=== PATIENT | female | born 1990 | race Caucasian/White ===

== ENCOUNTER → 2018-07-02 | Outpatient (CLI) | payer MEDICAID, OTHER ==
--- NOTE | 2018-07-02 08:48 | US ---
EXAMINATION TYPE: US abdomen complete DATE OF EXAM: 07/02/2018 COMPARISON: CLINICAL HISTORY: R10.12 LUQ Pain. LUQ pain, NPO, no previous surgeries EXAM MEASUREMENTS: Liver Length: 13.1 cm Gallbladder Wall: 0.2 cm CBD: 0.3 cm Spleen: 12.0 cm Right Kidney: 10.5 x 5.0 x 5.2 cm Left Kidney: 10.4 x 4.0 x 4.9 cm Pancreas: Mid and tail obscured by overlying bowel gas Liver: wnl, scanned through ribs due to overlying bowel gas Gallbladder: wnl, fold seen Evidence for sonographic Ron's sign: neg CBD: wnl Spleen: wnl Right Kidney: wnl Left Kidney: Mid pole echogenic focus with twinkling artifact = 0.5 x 0.5 cm Upper IVC: wnl Abd Aorta: Proximal not visualized due to overlying bowel gas The liver is homogenous. The intrahepatic portion of the IVC and proximal abdominal aorta are within normal limits. There is no evidence of cholelithiasis. Common bile duct is unremarkable. The visu alized portions of the pancreas are homogenous. The spleen is unremarkable. Kidneys are symmetric a nd free of hydronephrosis. No renal lesions are seen. IMPRESSION: 1. Nonobstructing nephrolithiasis left kidney.
== END | disposition home or self-care (01) ==
LOC: RADUSWWP 07:32
PROVIDERS: ATTEND Family Medicine
DX: N20.0 Calculus of kidney (principal)
CPT/HCPCS: 76700

== ENCOUNTER → 2018-08-13 | Outpatient (CLI) | payer MEDICAID ==
[2018-08-13 16:38] LABS: African American GFR (CKD) 88.2 (60.0-200.0); Albumin 4.5 g/dL (3.80-4.90); Albumin/Globulin Ratio 1.61 (1.60-3.17); Anion Gap 8.3 mmol/L (4.00-12.00); C Reactive Protein 0.8 mg/dL (0.0-0.8); Calcium 9.8 mg/dL (8.7-10.3); Carbon Dioxide 23.7 mmol/L (21.6-31.8); Globulin 2.8 g/dL (1.6-3.3); Potassium 3.8 mmol/L (3.5-5.5); Total Bilirubin 0.8 mg/dL (0.3-1.2); Total Protein 7.3 g/dL (6.2-8.2)
[2018-08-13 19:01] LABS: Gliadin AB IgA, Unit <0.2 U/mL
== END | disposition home or self-care (01) ==
LOC: LABWHC1 08:05
PROVIDERS: ATTEND Internal Medicine Gastroenterology
DX: K52.9 Noninfective gastroenteritis and colitis, unspecified (principal)
CPT/HCPCS: 36415; 80053; 83516; 85652; 86140

== ENCOUNTER 2018-09-26 08:16 | Day surgery (SDC) | payer MEDICAID ==
[2018-09-24 09:23] VITALS: BMI 38.7
[~2018-09-26 08:16] MED LIST: LACTATED RINGERS 1,000 ML IV SCH; LIDOCAINE 1% 20 ML VIAL (10MG/ML) FOR IV START INTRADERMA PRN
[2018-09-26 08:57] VITALS: TEMP 97.3
[2018-09-26] MEDS ORDERED: PROPOFOL 10 MG/ML 20 ML VIAL IV ONE (09:07)
[2018-09-26] MEDS ORDERED: LIDOCAINE 1% INJ 10MG/ML (20 ML MDV) ONE (09:07)
[2018-09-26] MEDS ORDERED: MIDAZOLAM 2 MG/2 ML VIAL ONE (09:07)
--- NOTE | 2018-09-26 09:27 | P.PCN ---
Date of Procedure: 09/26/18 Procedure(s) Performed: tBrief history: Patient is a pleasant 28-year-old white female, scheduled for an elective upper endoscopy as well as colonoscopy as a part of evaluation of abdominal pain, last few months duration. Procedure performed: Esophagogastroduodenoscopy with biopsy Colonoscopy with biopsy Preoperative diagnosis: Epigastric pain Left-sided abdominal pain and chronic diarrhea [place] [facility] [place]: After informed consent was obtained from the patient was brought into the endoscopy unit and IV sedation was administered by anesthesia under continuous monitoring. Initially upper endoscopy was done. The Olympus GF 160 video endoscope was inserted inserted into the mouth and esophagus intubated without any difficulty and was gradually advanced into the stomach and duodenum and carefully examined. The bulb and second part of the duodenum appeared normal. Biopsies were done from the duodenum to rule out celiac disease. The scope was then withdrawn into the stomach adequately insufflated with air and upon careful examination the antrum had mild gastritis and biopsies were done from this area. The body, cardia and fundus appeared normal. The scope was then withdrawn into the esophagus. The GE junction was located at 40 cm to the incisors. It appeared regular with no erythema erosions or ulcerations. Rest of the esophagus appeared normal. Patient tolerated the procedure well. At this time the patient continued to remain sedation. Initial digital rectal examination was normal. Olympus CF 160 video colonoscope was then inserted into the rectum and gradually advanced to the cecum without any difficulty. Careful examination was performed as the scope was gradually being withdrawn. The prep was excellent. Terminal ileum was intubated and approximately 20 cm visualized appeared normal. Biopsies were done from the terminal ileum. The cecum, ascending colon, transverse colon, descending colon, sigmoid colon and rectum appeared normal. Biopsies were also done from the ascending and descending colon to rule out microscopic/collagenous colitis. Retroflexion was performed in the rectum and no lesions were noted. Patient tolerated the procedure well. Impression: 1. Upper endoscopy revealed mild antral gastritis but no evidence of esophagitis or peptic ulcer disease 2. Colonoscopy was within normal limits with no evidence of colitis or colorectal neoplasia Recommendations: Findings of this examination were discussed with the patient as well as her family. She was advised to follow with the biopsy results and she'll be seen in office in 2-3 weeks
[2018-09-26 09:49] VITALS: BP 113/80; PULSE 87; RESP 18
== END 2018-09-26 10:12 | disposition home or self-care (01) ==
LOC: ORWHC2ENDO 08:16
PROVIDERS: ATTEND Internal Medicine Gastroenterology
DX: K29.50 Unspecified chronic gastritis without bleeding (principal); R19.7 Diarrhea, unspecified; J45.909 Unspecified asthma, uncomplicated; Z79.899 Other long term (current) drug therapy
CPT/HCPCS: 81025; 88305; 45380; 43239; J2250; J2001; J2704

== ENCOUNTER 2018-09-26 20:17 | Emergency (ER) | payer MEDICAID ==
[2018-09-26] MEDS ORDERED: SODIUM CHLORIDE 0.9% 500 ML 500 ML IV STA (20:39)
[2018-09-26] MEDS ORDERED: ONDANSETRON 4 MG/2 ML VIAL IVP STA (20:39)
[2018-09-26] MEDS ORDERED: MORPHINE SULFATE 4 MG/ML SYRINGE IV STA (20:39)
--- NOTE | 2018-09-26 20:41 | ED ---
Abdominal Pain HPI - General Chief Complaint: Abdominal Pain Stated Complaint: Post colonoscopy/EGD pain Time Seen by Provider: 09/26/18 20:27 Source: patient Mode of arrival: ambulatory Limitations: no limitations - History of Present Illness Initial Comments: 28-year-old female patient presents to the emergency department today for evaluation of upper abdominal pain. Patient states that she underwent upper GI endoscopy and colonoscopy earlier today with Dr. Romo. Patient states that she was discharged, had food, went home and took a nap. States upon awakening she had development of severe sharp stabbing pain to the midepigastric region radiat ing through to her back. Patient states she was nauseated and did vomit with this. She denies any hematemesis. She denies any diarrhea, hematochezia, or melena. States she is urinating without difficulty. Patient denies any history of similar type pain. States she underwent testing today due to chronic diarrhea and intermittent abdominal cramping. Denies any history of other abdominal surgeries. Patient denies any recent rash, fever, chills, shortness breath, chest pain, numbness, tingling, dizziness, weakness, hematuria, dysuria, urinary urgency, urinary frequency, headache, visual changes, or any other complaints. - Related Data Home Medications Medication Instructions Recorded Confirmed Albuterol Inhaler [Ventolin Hfa 1 - 2 puff INHALATION RT-Q6H PRN 11/06/15 09/26/18 Inhaler] Mometasone/Formoterol [Dulera 100 2 puff INHALATION RT-DAILY 09/24/18 09/26/18 Mcg/5 Mcg Inhaler] Montelukast [Singulair] 10 mg PO DAILY 09/24/18 09/26/18 Pramipexole [Mirapex] 0.125 mg PO DAILY 09/24/18 09/26/18 Allergies Allergy/AdvReac Type Severity Reaction Status Date / Time No Known Allergies Allergy Verified 09/26/18 20:36 Review of Systems ROS Statement: Those systems with pertinent positive or pertinent negative responses have been documented in the HPI. ROS Other: All systems not noted in ROS Statement are negative. Past Medical History Past Medical History: Asthma Additional Past Medical History / Comment(s): RLS, kidney stones, abd pain, diarrhea past 6 months History of Any Multi-Drug Resistant Organisms: None Reported Past Surgical History: No Surgical Hx Reported Additional Past Anesthesia/Blood Transfusion Reaction / Comment(s): has never had anesthesia Past Psychological History: Anxiety Smoking Status: Never smoker - Past Family History Mother Family Medical History: No Reported History General Exam Limitations: no limitations General appearance: alert, in no apparent distress, other (This is a well- developed, well-nourished adult female patient in mild distress related to pain. Vital signs upon presentation are temperature 97.7F, pulse 109, respirations 16, blood pressure 137/96, pulse ox 100% on room air.) Eye exam: Present: normal appearance, PERRL, EOMI. Absent: scleral icterus, conjunctival injection, periorbital swelling ENT exam: Present: normal exam, normal oropharynx, mucous membranes moist Respiratory exam: Present: normal lung sounds bilaterally. Absent: respiratory distress, wheezes, rales, rhonchi, stridor Cardiovascular Exam: Present: regular rate, normal rhythm, normal heart sounds. Absent: systolic murmur, diastolic murmur, rubs, gallop, clicks GI/Abdominal exam: Present: soft, tenderness (Midepigastric tenderness), normal bowel sounds. Absent: distended, guarding, rebound, rigid Neurological exam: Present: alert, oriented X3, CN II-XII intact Psychiatric exam: Present: normal affect, normal mood Skin exam: Present: warm, dry, intact, normal color. Absent: rash Course Vital Signs 09/26/18 09/27/18 20:22 00:11 Temperature 97.7 F 97.6 F Pulse Rate 109 H 87 Respiratory 16 20 Rate Blood Pressure 137/96 117/73 O2 Sat by Pulse 100 97 Oximetry Medical Decision Making - Medical Decision Making 28-year-old female patient percents to the emergency department today for evaluation of midepigastric abdominal pain. Patient underwent EGD and colonoscopy testing this morning. Physical examination does reveal some mild midepigastric tenderness but no guarding. Labs reviewed and are unremarkable. KUB was unremarkable. Patient remained in significant pain even after IV pain medication dosing so did perform CT of the abdomen and pelvis. There is no acute findings. Patient did receive second dose of medication. Upon reevaluation she is resting complete. She is reporting mild pain to the midepigastric region. The case was discussed with the bulk sealer operator Dr. Romo who recommends monitoring patient for return of symptoms. Does agree with discharge and follow-up in the office outpatient. Patient remained comfortable and was discharged home. We did discuss return parameters in detai. - Lab Data Result diagrams: 09/26/18 21:05 09/26/18 21:05 Lab Results 09/26/18 09/26/18 09/26/18 Range/Units 21:05 21:05 21:05 WBC 10.8 H (3.8-10.6) k/uL RBC 4.88 (3.80-5.40) m/uL Hgb 13.7 (11.4-16.0) gm/dL Hct 43.0 (34.0-46.0) % MCV 88.1 (80.0-100.0) fL MCH 28.1 (25.0-35.0) pg MCHC 31.9 (31.0-37.0) g/dL RDW 12.8 (11.5-15.5) % Plt Count 308 (150-450) k/uL Neutrophils % 69 % Lymphocytes % 21 % Monocytes % 4 % Eosinophils % 4 % Basophils % 0 % Neutrophils # 7.5 (1.3-7.7) k/uL Lymphocytes # 2.3 (1.0-4.8) k/uL Monocytes # 0.5 (0-1.0) k/uL Eosinophils # 0.4 (0-0.7) k/uL Basophils # 0.1 (0-0.2) k/uL PT 9.7 (9.0-12.0) sec INR 0.9 (<1.2) APTT 25.3 (22.0-30.0) sec Sodium 139 (137-145) mmol/L Potassium 4.0 (3.5-5.1) mmol/L Chloride 105 (98-107) mmol/L Carbon Dioxide 24 (22-30) mmol/L Anion Gap 10 mmol/L BUN 12 (7-17) mg/dL Creatinine 0.79 (0.52-1.04) mg/dL Est GFR (CKD-EPI)AfAm >90 (>60 ml/min/1.73 sqM) Est GFR (CKD-EPI)NonAf >90 (>60 ml/min/1.73 sqM) Glucose 103 H (74-99) mg/dL Calcium 9.8 (8.4-10.2) mg/dL Total Bilirubin 1.0 (0.2-1.3) mg/dL AST 26 (14-36) U/L ALT 35 (9-52) U/L Alkaline Phosphatase 105 (38-126) U/L Total Protein 7.4 (6.3-8.2) g/dL Albumin 4.1 (3.5-5.0) g/dL Amylase 57 (30-110) U/L Lipase 87 (23-300) U/L Urine Color Urine Appearance (Clear) Urine pH (5.0-8.0) Ur Specific [place] (1.001-1.035) Urine Protein (Negative) Urine Glucose (UA) (Negative) Urine Ketones (Negative) Urine Blood (Negative) Urine Nitrite (Negative) Urine Bilirubin (Negative) Urine Urobilinogen (<2.0) mg/dL Ur Leukocyte Esterase (Negative) Urine RBC (0-5) /hpf Urine WBC (0-5) /hpf Ur Squamous Epith Cells (0-4) /hpf Urine Mucus (None) /hpf Urine HCG, Qual (Not Detectd) 09/26/18 09/26/18 Range/Units 22:35 22:35 WBC (3.8-10.6) k/uL RBC (3.80-5.40) m/uL Hgb (11.4-16.0) gm/dL Hct (34.0-46.0) % MCV (80.0-100.0) fL MCH (25.0-35.0) pg MCHC (31.0-37.0) g/dL RDW (11.5-15.5) % Plt Count (150-450) k/uL Neutrophils % % Lymphocytes % % Monocytes % % Eosinophils % % Basophils % % Neutrophils # (1.3-7.7) k/uL Lymphocytes # (1.0-4.8) k/uL Monocytes # (0-1.0) k/uL Eosinophils # (0-0.7) k/uL Basophils # (0-0.2) k/uL PT (9.0-12.0) sec INR (<1.2) APTT (22.0-30.0) sec Sodium (137-145) mmol/L Potassium (3.5-5.1) mmol/L Chloride (98-107) mmol/L Carbon Dioxide (22-30) mmol/L Anion Gap mmol/L BUN (7-17) mg/dL Creatinine (0.52-1.04) mg/dL Est GFR (CKD-EPI)AfAm (>60 ml/min/1.73 sqM) Est GFR (CKD-EPI)NonAf (>60 ml/min/1.73 sqM) Glucose (74-99) mg/dL Calcium (8.4-10.2) mg/dL Total Bilirubin (0.2-1.3) mg/dL AST (14-36) U/L ALT (9-52) U/L Alkaline Phosphatase (38-126) U/L Total Protein (6.3-8.2) g/dL Albumin (3.5-5.0) g/dL Amylase (30-110) U/L Lipase (23-300) U/L Urine Color Light Yellow Urine Appearance Clear (Clear) Urine pH 5.5 (5.0-8.0) Ur Specific [place] >1.050 H (1.001-1.035) Urine Protein Negative (Negative) Urine Glucose (UA) Negative (Negative) Urine Ketones Negative (Negative) Urine Blood Small H (Negative) Urine Nitrite Negative (Negative) Urine Bilirubin Negative (Negative) Urine Urobilinogen <2.0 (<2.0) mg/dL Ur Leukocyte Esterase Negative (Negative) Urine RBC 29 H (0-5) /hpf Urine WBC 4 (0-5) /hpf Ur Squamous Epith Cells 5 H (0-4) /hpf Urine Mucus Rare H (None) /hpf Urine HCG, Qual Not Detected (Not Detectd) - Radiology Data Radiology results: report reviewed, image reviewed KUB x-ray of the abdomen was obtained. Report reviewed in its entirety. Impression by Dr. Earnest Coombs shows negative examination. CT abdomen and pelvis was obtained. Report was reviewed in its entirety. Impression by Dr. Manzanares shows no acute findings. There is tiny left posterolateral hernia containing a portion of the fundus of the stomach. Disposition Clinical Impression: Abdominal pain Disposition: HOME SELF-CARE Condition: Good Instructions (If sedation given, give patient instructions): Abdominal Pain (ED) Additional Instructions: Start clear liquid diet and advance as tolerated. Follow-up with your gastric antrum urologist as directed. Return to the emergency department immediately for any new, worsening, or concerning symptoms. Is patient prescribed a controlled substance at d/c from ED?: No Referrals: Demi Krishna MD [Primary Care Provider] - 1-2 days Time of Disposition: 23:59
[2018-09-26 21:28] LABS: Basophils # (A) 0.1 k/uL (0-0.2); Basophils % (A) 0 %; Eosinophils # (A) 0.4 k/uL (0-0.7); Eosinophils % (A) 4 %; HGB 13.7 gm/dL (11.4-16.0); Lymphocytes # (A) 2.3 k/uL (1.0-4.8); Lymphocytes % (A) 21 %; MCH 28.1 pg (25.0-35.0); MCHC 31.9 g/dL (31.0-37.0); MCV 88.1 fL (80.0-100.0); Monocytes # (A) 0.5 k/uL (0-1.0); Monocytes % (A) 4 %; Neutrophils # (A) 7.5 k/uL (1.3-7.7); Neutrophils % (A) 69 %; Platelet Count 308 k/uL (150-450); RBC 4.88 m/uL (3.80-5.40); RDW 12.8 % (11.5-15.5); WBC 10.8 k/uL (3.8-10.6)
[2018-09-26 21:37] LABS: INR 0.9 (<1.2); Partial Thromboplastin Time 25.3 sec (22.0-30.0); Prothrombin Time 9.7 sec (9.0-12.0)
[2018-09-26 21:39] LABS: ALT 35 U/L (9-52); AST 26 U/L (14-36); African American GFR (CKD) >90 (>60 ml/min/1.73 sqM); Albumin 4.1 g/dL (3.5-5.0); Alkaline Phosphatase 105 U/L (38-126); Amylase 57 U/L (30-110); Anion Gap 10 mmol/L; Blood Urea Nitrogen 12 mg/dL (7-17); Calcium 9.8 mg/dL (8.4-10.2); Carbon Dioxide 24 mmol/L (22-30); Chloride 105 mmol/L (98-107); Glucose 103 mg/dL (74-99); Non-African American GFR(CKD) >90 (>60 ml/min/1.73 sqM); Sodium 139 mmol/L (137-145); Total Protein 7.4 g/dL (6.3-8.2)
[2018-09-26] MEDS ORDERED: FAMOTIDINE 20 MG/2 ML VIAL IV STA (21:46)
[2018-09-26] MEDS ORDERED: HYDROmorphone 0.5 MG/0.5 ML SYRINGE IVP STA (21:46)
--- NOTE | 2018-09-26 22:25 | CT ---
EXAM: CT Abdomen and Pelvis With Intravenous Contrast CLINICAL HISTORY: Pain TECHNIQUE: Axial computed tomography images of the abdomen and pelvis with intravenous contrast. CTDI is 0.085, 0.085, 12.5 11.3 mGy and DLP is 1103.2 mGy-cm. This CT exam was performed using one or more of the following dose reduction techniques: automated exposure control, adjustment of the mA and/or kV according to patient size, and/or use of iterative reconstruction technique. COMPARISON: No relevant prior studies available. FINDINGS: Lung bases: Unremarkable. No mass. No consolidation. ABDOMEN: Liver: Unremarkable. Gallbladder and bile ducts: Unremarkable. Pancreas: Unremarkable. Spleen: Unremarkable. Adrenals: Unremarkable. Kidneys and ureters: Unremarkable. Stomach and bowel: Unremarkable. PELVIS: Appendix: Appendix is unremarkable. Bladder: Unremarkable. Reproductive: Unremarkable as visualized. ABDOMEN and PELVIS: Intraperitoneal space: Unremarkable. Bones/joints: No acute fracture. No dislocation. Soft tissues: Tiny left Bochdalek hernia containing a portion of the fundus of the stomach. Vasculature: Unremarkable. No abdominal aortic aneurysm. Lymph nodes: Unremarkable. IMPRESSION: No acute findings.
--- NOTE | 2018-09-26 22:31 | XR ---
EXAMINATION TYPE: XR KUB on the 2 views DATE OF EXAM: 09/26/2018 COMPARISON: NONE HISTORY: Upper quadrant pain TECHNIQUE: 2 upright views FINDINGS: Visualized lung bases and pleural spaces are negative. No pneumoperitoneum or pneumatosis. The bowel gas pattern is normal. No definite acute skeletal or soft tissue findings. IMPRESSION: Negative examination.
[2018-09-26 22:45] LABS: Appearance,Urine Clear (Clear); Bilirubin,Urine Negative (Negative); Blood,Urine Small (Negative); Color,Urine Light Yellow; Glucose,Urine (UA) Negative (Negative); Ketones,Urine Negative (Negative); Leukocyte Esterase,Urine Negative (Negative); Mucus,Urine Rare /hpf; Nitrite,Urine Negative (Negative); PH, Urine 5.5 (5.0-8.0); Protein,Urine Negative (Negative); RBC,Urine 29 /hpf (0-5); Squamous Epithelial Cell,Urine 5 /hpf (0-4); Urobilinogen,Urine <2.0 mg/dL (<2.0); WBC,Urine 4 /hpf (0-5)
[2018-09-26 22:46] LABS: Specific Gravity,Urine >1.050 (1.001-1.035)
[2018-09-27 00:12] VITALS: BP 117/73; PULSE 87; RESP 20; TEMP 97.6
== END 2018-09-27 00:15 | disposition home or self-care (01) ==
LOC: EC 20:17
DX: R10.10 Upper abdominal pain, unspecified (principal); R10.13 Epigastric pain; R11.2 Nausea with vomiting, unspecified; J45.909 Unspecified asthma, uncomplicated; G25.81 Restless legs syndrome; Z87.442 Personal history of urinary calculi; Z79.51 Long term (current) use of inhaled steroids; Z79.899 Other long term (current) drug therapy
CPT/HCPCS: 36415; 80053; 82150; 83690; 85025; 85610; 85730; 81001; 81025; 74018; 74177; 99284; 96374; 96375 ×3; 96361 ×3; J2270; J2405; J1170; Q9967

== ENCOUNTER → 2020-05-01 | Outpatient (CLI) | payer MEDICAID ==
[2020-05-01 11:04] LABS: ALT 18 U/L (4-34); AST 20 U/L (14-36); African American GFR (CKD) >90 (>60 ml/min/1.73 sqM); Albumin 4.1 g/dL (3.5-5.0); Albumin/Globulin Ratio 1.2; Alkaline Phosphatase 94 U/L (38-126); Anion Gap 7 mmol/L; Blood Urea Nitrogen 13 mg/dL (7-17); Calcium 9.3 mg/dL (8.4-10.2); Carbon Dioxide 26 mmol/L (22-30); Chloride 105 mmol/L (98-107); Cholesterol 159 mg/dL (<200); Globulin 3.3 g/dL; Glucose 103 mg/dL (74-99); HDL Cholesterol 57 mg/dL (40-60); LDL Cholesterol,Calculated 85 mg/dL (0-99); Non-African American GFR(CKD) >90 (>60 ml/min/1.73 sqM); Potassium 4.3 mmol/L (3.5-5.1); Sodium 138 mmol/L (137-145); Total Bilirubin 0.8 mg/dL (0.2-1.3); Total Protein 7.4 g/dL (6.3-8.2); Triglycerides 86 mg/dL (<150)
[2020-05-01 15:50] LABS: HCT 42.1 % (37.2-46.3); HGB 13.5 g/dL (12.0-15.0); MCH 28.8 pg (27.0-32.0); MCHC 32.1 g/dL (32.0-37.0); MCV 89.8 fL (80.0-97.0); Mean Platelet Volume 10.1 fL (9.5-12.2); Platelet Count 339 X 10*3/uL (140-440); RBC 4.69 X 10*6/uL (4.10-5.20); RDW 12.4 % (11.5-14.5); WBC 7.52 X 10*3/uL (4.50-10.00)
== END | disposition home or self-care (01) ==
LOC: LABWHC1 09:16
PROVIDERS: ATTEND Family Medicine
DX: I26.99 Other pulmonary embolism without acute cor pulmonale (principal)
CPT/HCPCS: 36415; 80053; 80061; 82306; 84443; 85027

== ENCOUNTER → 2020-09-21 | Outpatient (CLI) | payer MEDICAID ==
--- NOTE | 2020-09-21 08:27 | CT ---
EXAMINATION TYPE: CT knee LT wo con DATE OF EXAM: 09/21/2020 COMPARISON: None HISTORY: Effusion, left knee pain CT DLP: 467.5 mGycm Automated exposure control for dose reduction was used. Unenhanced CT of the left knee was performed with bone and soft tissue window settings submitted. 3-D reconstruction was obtained at a separate workstation. FINDINGS: There is a vague nondisplaced fracture involving the tibial plateau anteriorly. Fracture extends medi ally to the midportion of the tibial plateau seen best on coronal images of 57 and sagittal data s et .There is a mild surrounding soft tissue edema noted. No additional fractures are seen at this time. Small suprapatellar joint effusion noted measuring approximately 3.7 x 3.2 x 1.2 cm. Joint spaces are well-preserved. There is mild stranding of the lateral collateral ligament which may reflect strain. Medial collateral ligament appears to be grossly intact. ACL, PCL and menisci not ap propriately evaluated on CT. Quadriceps and patellar tendons are grossly intact. IMPRESSION: 1.There is a vague nondisplaced fracture involving the tibial plateau anteriorly. Fracture extends me dially to the midportion of the tibial plateau. 2. Small suprapatellar joint effusion. 3. Findings suggest lateral collateral ligament strain. Correlate clinically. Consider MRI if felt to be clinically indicated.
== END | disposition home or self-care (01) ==
LOC: RADCTMAIN 07:37
PROVIDERS: ATTEND Orthopaedic Surgery Sports Medicine
DX: S82.145A Nondisplaced bicondylar fracture of left tibia, initial encounter for closed fracture (principal); X58.XXXA Exposure to other specified factors, initial encounter

== ENCOUNTER → 2021-06-10 | Outpatient (CLI) | payer MEDICAID ==
[2021-06-10 17:37] LABS: Basophils # (A) 0.06 X 10*3/uL (0.00-0.10); Basophils % (A) 0.8 %; Eosinophils % (A) 8.2 %; HCT 40.3 % (37.2-46.3); Immature Grans, Automated 0.3 %; Lymphocytes # (A) 2.11 X 10*3/uL (0.90-5.00); Lymphocytes % (A) 28.7 %; MCH 28.6 pg (27.0-32.0); MCHC 32.3 g/dL (32.0-37.0); MCV 88.6 fL (80.0-97.0); Mean Platelet Volume 10.5 fL (9.5-12.2); Monocytes # (A) 0.45 X 10*3/uL (0.20-1.00); Monocytes % (A) 6.1 %; NRBC Per 100 WBC 0 /100 WBCS (0.0-0.0); Neutrophils # (A) 4.12 X 10*3/uL (1.80-7.70); Neutrophils % (A) 55.9 %; Platelet Count 361 X 10*3/uL (140-440); RBC 4.55 X 10*6/uL (4.10-5.20); RDW 13.1 % (11.5-14.5); WBC 7.36 X 10*3/uL (4.50-10.00)
[2021-06-10 18:29] LABS: Chol/HDL Ratio 2.57 Ratio; LDL Cholesterol,Calculated 89.7 mg/dL (0.0-131.0); VLDL Calculation 13.46 mg/dL (5.00-40.00)
[2021-06-10 18:30] LABS: ALT 17 U/L (8-44); AST 15 U/L (13-35); African American GFR (CKD) 113.8 (60.0-200.0); Albumin 4.2 g/dL (3.8-4.9); Alkaline Phosphatase 105 U/L (41-126); BUN/Creat Ratio 14.57 Ratio (12.00-20.00); Blood Urea Nitrogen 11.6 mg/dL (9.0-27.0); Calcium 9.4 mg/dL (8.7-10.3); Carbon Dioxide 21.3 mmol/L (20.0-27.5); Chloride 106 mmol/L (96-109); Globulin 2.8 g/dL (1.6-3.3); Glucose 95 mg/dL (70-110); Non-African American GFR(CKD) 98.1 (60.0-200.0); Potassium 4.1 mmol/L (3.5-5.5); Sodium 139 mmol/L (135-145)
== END | disposition home or self-care (01) ==
LOC: LABWHC1 14:16
PROVIDERS: ATTEND Family Medicine
DX: Z00.00 Encounter for general adult medical examination without abnormal findings (principal); E55.9 Vitamin D deficiency, unspecified
CPT/HCPCS: 36415; 80053; 80061; 82306; 83036; 84443; 85025

== ENCOUNTER → 2021-08-11 | Outpatient (CLI) | payer MEDICAID ==
--- NOTE | 2021-08-13 07:24 | FL ---
EXAMINATION TYPE: FL hysterosalpingography DATE OF EXAM: 08/11/2021 CLINICAL HISTORY: Infertility. TECHNIQUE: Fluoroscopy. COMPARISON: CT abdomen and pelvis September 26, 2018. FINDINGS: Fluoroscopic guidance was provided during hysterosalpingogram procedure performed by micaela heaton A total of 1 minute 28 seconds of fluoroscopic time was utilized during the procedure and 10 spot images was acquired. A total of 8 cc of Isovue-370 was used. Procedure was explained to patient. Benefits, alternatives, and risks were discussed. Informed consen t was then obtained. Preprocedure potato picker image shows no suspicious abnormality. Speculum was inserted using sterile techniq ue. Cervical os was identified but appeared narrowed. Catheter was successfully inserted into cervica l os. Patient had pain throughout entire procedure. Balloon was inflated. Despite balloon inflation t here is significantly identified. There is early visualization of right fallopian tube appears within normal limits and free spillage into the right peritoneal cavity. Multiple attempts to insert more c ontrast unsuccessful and filling the left fallopian tube. Endometrial contour appears within normal l imits. After several attempts with patient in pain, procedure was terminated. Balloon was deflated an d catheter was removed. Speculum was removed. Patient tolerated procedure without any immediate complication. Patient was kept in the department fo r shortly after the procedure and then discharged home in stable condition. IMPRESSION: Patent right fallopian tube. Nonvisualized left fallopian tube.
== END | disposition home or self-care (01) ==
LOC: RADUSWWP 13:25
PROVIDERS: ATTEND Obstetrics & Gynecology
DX: N97.9 Female infertility, unspecified (principal)
CPT/HCPCS: 58340; 74740; Q9967

== ENCOUNTER → 2022-10-10 | Outpatient (CLI) | payer MEDICAID ==
--- NOTE | 2022-10-11 18:48 | MR ---
EXAMINATION TYPE: MR lumbar spine wo con DATE OF EXAM: 10/10/2022 6:03 PM COMPARISON: Radiograph 10/10/2022, 07/07/2022 radiograph. CLINICAL INDICATION: Female, 32 years old with history of M47.26; PHH, Low back pain into right side TECHNIQUE: Multi planar, multi sequence imaging was performed utilizing: T1-weighted, T2-weighted, a nd turbo inversion recovery imaging of the lumbar spine. IV Contrast: None. FINDINGS: Alignment: The lumbar vertebral bodies have preserved heights and alignment. Cord: The conus medullaris and the distal spinal cord appear unremarkable with regards to their signa l intensity and morphology. Bones/Discs: Bone marrow signal is grossly maintained. T11 high T1 high T2 signal lesion likely repre senting vertebral body hemangioma. No abnormal bony edema on inversion recovery sequences. L4-L5 and L5-S1 disc desiccation is present. Scattered facet joint arthropathy is present. T12-L1: No evidence of significant spinal canal stenosis or neural foraminal stenosis. L1-L2: No evidence of significant spinal canal stenosis or neural foraminal stenosis. L2-L3: No evidence of significant spinal canal stenosis or neural foraminal stenosis. L3-L4: No evidence of significant spinal canal stenosis or neural foraminal stenosis. L4-L5: Disc bulge and facet joint arthropathy result in mild spinal canal and mild bilateral neural f oraminal stenosis. L5-S1: Central and left central disc protrusion without significant spinal canal or neural foraminal stenosis. No significant spinal canal or neural foraminal stenosis in the remainder of the visualized levels. Other findings: None. IMPRESSION: 1. No definitive evidence of significant spinal canal or neural foraminal stenosis. 2. L5-S1 central disc protrusion without evidence for significant spinal canal stenosis.
== END | disposition home or self-care (01) ==
LOC: RADMRIMAIN 17:24
PROVIDERS: ATTEND Orthopaedic Surgery
DX: M47.26 Other spondylosis with radiculopathy, lumbar region (principal); M51.16 Intervertebral disc disorders with radiculopathy, lumbar region
CPT/HCPCS: 72148

== ENCOUNTER → 2022-12-22 | Outpatient (CLI) | payer MEDICAID ==
[2022-12-22 13:14] VITALS: BP 140/91; PULSE 105; RESP 16; TEMP 98
--- NOTE | 2022-12-22 13:51 | P.PAINPG ---
Objective - Vital Signs Vital signs: Intake & Output 12/21/22 12/22/22 12/22/22 18:59 06:59 18:59 Weight 104.326 kg PQRS Measure Charge Sheet Comment: HISTORY OF PRESENT ILLNESS: A 32 yr old female as a referral from [facility] presents today w severe and chronic LBP secondary to DDD, spondylosis and facet arthropathy without myelopathy for evaluation. Pt states pain level is provoked at 8 /10 in intensity, constant, localized in the lower lumbar spine, sharp in character w shooting pain towards the R thigh and knee. Pain is provoked by over activity or walking/ standing for periods of 30 min or more. Pain is alleviated by PT x 6 wks in 2021, massage therapy semi monthly x 2 sessions this month which she is currently in, chiropractic treatments in 2021, heat, ice, medications (Lyrica, Flexeril, Ibu), topical, repositioning and rest. Oswestry axial pain score at 16. PMH: OA, Asthma, RLS, Nephrolithiasis, Anxiety PSH: DENIES SH: Negative x3 FH: Mo- No Medical History All: See list Meds: See list REVIEW OF ORGAN SYSTEMS: CONSTITUTIONAL: No fevers or chills. No recent weight loss. NEUROLOGICAL: + numbness and tingling along the distal extremities. No seizure disorders or headaches. MUSCULOSKELETAL: + pain PSYCHIATRIC: Denies current depression or suicidal thoughts. Physical Examinations : Constitutional : Cooperative , not in acute distress . Neurologic : Cranial nerve II to XII intact. No focal neurological deficits. Psychiatric : alert & oriented x 3. Matching mood & appropriate affect. Judgment & insight intact. Musculoskeletal : Cervical Spine Motor strength in the deltoid and biceps: Normal right side. Normal Left side Motor strength biceps and the wrist extensors: Normal right side . Normal left side Motor strength in the triceps muscle: Normal right side. Normal left side Deep tendon reflexes: Normal at the biceps. Normal at Brachioradialis. Normal at triceps Vertebral body tenderness to deep palpation over Cervical facet loading test: positive bilaterally Spurling test: positive bilaterally Neck distraction test: positive bilaterally Mariam sign: positive bilaterally Lumbar spine Motor strength lower extremities ,thigh and legs 5/5 Right side , 5/5 Left side Deep tendon reflexes : Normal Knee Jerk. Normal Ankle Jerk Vertebral body tenderness over L5 Duong Test positive Lumbar facet Loading Test: positive Right / positive Left Range of motion of the lumbar spine Flexion 30 degrees, extension 10 degrees Straight Leg Raise test: Left/ Right positive at <35 degrees Alma test: positive right / positive left. Severe tenderness over the Sacroiliac joint on the Right / Left sides Gaenslen test: positive bilaterally Seated flexion test: positive bilaterally. Sacral spine : Severe tenderness over the Sacroiliac joint: right side / left side Range of motion: Flexion of the lumbar spine <60 degrees Range of motion: Extension of the lumbar spine <20 degrees Gaenslen's Test positive Andre's Test positive Alma test: positive right side / left side Thigh Thrust Test Sacral Thrust Test Imaging: MRI noncontrast of the lumbar spine from 10/10/22 reviewed Assessment/ Plan : Lumbar DDD Recommendation of KURT L5-S1 #1. May need a series of injections for optimal pain relief. Risks, benefits of procedure discussed and patient verbalized understanding. Admits to anti- coagulant use or medical history of diabetes. Protocol for discontinuation/ continuation of medications deon procedure discussed. Minimal anesthesia provided, if clinically indicated, consisting of Versed and Fentanyl. Valium 5mg #1 to take 1 hr prior to procedure. Use, side effects, adverse reactions and safe storage discussed. Pt acknowledged understanding. All questions answered. I have spent greater than 30 minutes on patient care today. Dr Martini was available by phone for the evaluation of this patient. The time was used to review the medical records including relevant urine studies and Prescription history (MAPs), review of the available imaging, evaluation and examination of the patient, coordination of care with the medical staff and if applicable referring physicians, as well as creation of the medical record PQRS Narrative: Smoking Status Never smoker Home Medications: Ambulatory Orders Albuterol Inhaler [Ventolin Hfa Inhaler] 1 - 2 puff INHALATION RT-Q6H PRN 11/06/15 Mometasone/Formoterol [Dulera 100 Mcg/5 Mcg Inhaler] 2 puff INHALATION RT-DAILY 09/24/18 Montelukast [Singulair] 10 mg PO DAILY 09/24/18 Pramipexole [Mirapex] 0.125 mg PO DAILY 09/24/18 diazePAM [Valium] 5 mg PO DAILY PRN 1 Days #2 tab 12/22/22 Controlled Substance Measures - Controlled Substance Measures Is patient prescribed a controlled substance at discharge?: Yes When asked, does pt state using other controlled substances?: No If prescribed controlled substance>3 days was MAPS reviewed?: Prescribed <3 Days
== END ==
LOC: PNWHC3 12:17
PROVIDERS: ATTEND Specialist
DX: M47.817 Spondylosis without myelopathy or radiculopathy, lumbosacral region (principal); M48.061 Spinal stenosis, lumbar region without neurogenic claudication; M51.36 Other intervertebral disc degeneration, lumbar region; M19.90 Unspecified osteoarthritis, unspecified site; J45.909 Unspecified asthma, uncomplicated; F41.9 Anxiety disorder, unspecified; Z79.51 Long term (current) use of inhaled steroids
CPT/HCPCS: 99211

== ENCOUNTER 2023-01-10 07:31 | Day surgery (SDC) | payer MEDICAID ==
[2023-01-05 14:27] VITALS: BMI 44.9
[~2023-01-10 07:31] MED LIST changes: -LIDOCAINE 1% 20 ML VIAL (10MG/ML) FOR IV START INTRADERMA PRN
[2023-01-10 08:27] VITALS: RESP 16; TEMP 97.3
[2023-01-10] MEDS ORDERED: methylPREDNISolone ACETATE 80 MG/ML 1 ML VIAL ONE (09:38)
[2023-01-10] MEDS ORDERED: IOPAMIDOL M200 10 ML VIAL ONE (09:38)
[2023-01-10] MEDS ORDERED: ROPIVACAINE 5MG/ML 20ML VIAL ONE (09:38)
--- NOTE | 2023-01-10 10:08 | FL ---
Intraoperative/procedural fluoroscopic services were provided for lumbar epidural steroid injection. Total fluoroscopy time is 42.3 seconds with a total of 2 submitted images to PACS. Total DAP 0.01161 mGym2. Please see the operative note for further details.
--- NOTE | 2023-01-10 10:12 | P.PCN ---
Date of Procedure: 01/10/23 Description of Procedure: PREOPERATIVE DIAGNOSIS: 1- Lumbar Degenerative Disc Diseases 2-Lumbar spondylosis with Facet arthropathy without myelopathy. 3-lumbar spinal stenosis POSTOPERATIVE DIAGNOSIS: 1-lumbar degenerative disc disease. 2-lumbar spondylosis with facet arthropathy without myelopathy. 3-lumbar spinal stenosis. PROCEDURE 1. Lumbar epidural steroid injection under fluoroscopic guidance at the L4-5 level. (Fluoroscopy imaging was available in radiology department) 2. Lumbar epidurogram. ANESTHESIA: Lidocaine 1% 3 and then only. EBL: Minimal PROCEDURE INDICATION: The patient with low back pain and radiculitis symptoms unresponsive to conservative treatment. Fluoroscopy was used to optimize visualization of the needle placement and to maximize safety. PROCEDURE DESCRIPTION / TECHNIQUE: The patient was seen and identified in the preoperative area. Risks, benefits, complications including but not limited to infections ,bleeding ,allergic reaction to the medications ,nerve damage and not complete pain releife , and alternatives were discussed with the patient. The patient agreed to proceed with the procedure and signed the consent, and vital signs were stable. Patient was taken to the OR and time out was completed. The patient was placed in the prone position on procedure table and a pillow was placed under the abdomen to reduce lumbar lordosis. The lumbosacral area was prepped and draped in the usual sterile fashion.ere closely monitored during the procedure. Vital signs was monitered during the entire procedure. Using anterior-posterior fluoroscopy, initially attempted L5-S1 levels but patient was very sensitive so changed to L4-5 interlaminar space was identified and the skin over this site was marked and then infiltrated with 1% lidocaine subcutaneously. Subsequently, a 20-gauge Tuohy epidural needle was inserted and advanced toward the epidural space using the ``Loss of resistance technique and guided by AP and lateral fluoroscopy. The correct needle position in the epidural space was verified with the injection of 2 mL of the water soluble contrast dye Isovue 200 contrast and observing an excellent epidurogram with the epidural spread of the dye, after negative aspiration for blood and CSF and in the absence of paresthesias. Again after negative aspiration, a 6 ml mixture containing 80 mg of Depo-medrol ( Preservetive Free ), and 5 ml of preservative free Normal Saline, was injected and a washout of epidurogram was seen. Needle was withdrawn intact, skin was cleansed, and bandages were applied. COMPLICATIONS: None DISPOSITION / PLANS: The patient was placed in a supine position and transferred to the recovery area in a stable condition for observation. There was no evidence of lower extremity motor or sensory deficit after the procedure. Patient was discharged from the recovery room after meeting discharge criteria. Home discharge instructions were given to the patient by the staff. The patient was reexamined prior to discharge. The patient will schedule a follow up in the clinic in 2-4 weeks.
[2023-01-10 10:35] VITALS: BP 117/87; PULSE 81
== END 2023-01-10 10:35 | disposition home or self-care (01) ==
LOC: ORPAIN 07:31
PROVIDERS: ATTEND Pain Medicine Interventional Pain Medicine
DX: M51.16 Intervertebral disc disorders with radiculopathy, lumbar region (principal); M47.26 Other spondylosis with radiculopathy, lumbar region; M48.061 Spinal stenosis, lumbar region without neurogenic claudication; Z79.899 Other long term (current) drug therapy
CPT/HCPCS: 81025; 62323; J1040; Q9966; J2795

== ENCOUNTER → 2023-02-09 | Outpatient (CLI) | payer MEDICAID ==
[2023-02-09 13:27] VITALS: BP 159/98; PULSE 95; RESP 16; TEMP 97.6
--- NOTE | 2023-02-09 15:10 | P.PAINPG ---
PQRS Measure Charge Sheet Comment: HISTORY OF PRESENT ILLNESS: A 32 yr old female presents today w severe and chronic LBP secondary to DDD, spondylosis and facet arthropathy without myelopathy for evaluation s/p KURT L4- L5 #1. Pt states she experienced 80 % pain relief x 4 wks s/p procedure. Pt states pain level is provoked at 8 /10 in intensity, constant, localized in the lower L lumbar spine, predominantly axial, sharp in character w occasional shooting pain towards the L thigh and knee. Pain is provoked by over activity or walking/ standing for periods of 30 min or more. Pain is alleviated by PT x 6 wks in 2021, massage therapy semi monthly x 2 sessions this month which she is currently in, chiropractic treatments in 2021, heat, ice, medications, topical, repositioning and rest. Oswestry axial pain score at 16. Interventional procedures included KURT L4-L5 x1 Medications include Lyrica, Flexeril, Ibu, Celebrex REVIEW OF ORGAN SYSTEMS: CONSTITUTIONAL: No fevers or chills. No recent weight loss. NEUROLOGICAL: + numbness and tingling along the distal extremities. No seizure disorders or headaches. MUSCULOSKELETAL: + pain PSYCHIATRIC: Denies current depression or suicidal thoughts. Physical Examinations : Constitutional : Cooperative , not in acute distress . Neurologic : Cranial nerve II to XII intact. No focal neurological deficits. Psychiatric : alert & oriented x 3. Matching mood & appropriate affect. Judgment & insight intact. Musculoskeletal : Cervical Spine Motor strength in the deltoid and biceps: Normal right side. Normal Left side Motor strength biceps and the wrist extensors: Normal right side . Normal left side Motor strength in the triceps muscle: Normal right side. Normal left side Deep tendon reflexes: Normal at the biceps. Normal at Brachioradialis. Normal at triceps Vertebral body tenderness to deep palpation over Cervical facet loading test: positive bilaterally Spurling test: positive bilaterally Neck distraction test: positive bilaterally Mariam sign: positive bilaterally Lumbar spine Motor strength lower extremities ,thigh and legs 5/5 Right side , 5/5 Left side Deep tendon reflexes : Normal Knee Jerk. Normal Ankle Jerk Vertebral body tenderness over L5 Duong Test positive Lumbar facet Loading Test: positive Right / positive Left Range of motion of the lumbar spine Flexion 30 degrees, extension 10 degrees Straight Leg Raise test: Left/ Right positive at <35 degrees Alma test: positive right / positive left. Severe tenderness over the Sacroiliac joint on the Right / Left sides Gaenslen test: positive bilaterally Seated flexion test: positive bilaterally. Sacral spine : Severe tenderness over the Sacroiliac joint: right side / left side Range of motion: Flexion of the lumbar spine <60 degrees Range of motion: Extension of the lumbar spine <20 degrees Gaenslen's Test positive Andre's Test positive Alma test: positive right side / left side Thigh Thrust Test Sacral Thrust Test Imaging: MRI noncontrast of the lumbar spine from 10/10/22 reviewed Assessment/ Plan : Lumbar DDD Recommendation of L TFESI L4-L5 #2. May need a series of injections for optimal pain relief. Risks, benefits of procedure discussed and patient verbalized understanding. Admits to anti- coagulant use or medical history of diabetes. Protocol for discontinuation/ continuation of medications deon procedure discussed. Use, side effects, adverse reactions and safe storage discussed. Pt acknowledged understanding. All questions answered. I have spent greater than 30 minutes on patient care today. Dr Martini was available by phone for the evaluation of this patient. The time was used to review the medical records including relevant urine studies and Prescription history (MAPs), review of the available imaging, evaluation and examination of the patient, coordination of care with the medical staff and if applicable referring physicians, as well as creation of the medical record PQRS Narrative: Smoking Status Never smoker Hx Alcohol Use (MH) No Home Medications: Ambulatory Orders Albuterol Inhaler [Ventolin Hfa Inhaler] 1 - 2 puff INHALATION RT-Q6H PRN 11/06/15 Mometasone/Formoterol [Dulera 100 Mcg/5 Mcg Inhaler] 2 puff INHALATION RT-DAILY 09/24/18 Montelukast [Singulair] 10 mg PO DAILY 09/24/18 Pramipexole [Mirapex] 0.125 mg PO DAILY 09/24/18 Lidocaine 5% Patch [Lidoderm] 1 each TP DAILY 2 Days #2 patch 02/09/23 diazePAM [Valium] 5 mg PO DAILY PRN 1 Days #2 tab 02/09/23 Controlled Substance Measures - Controlled Substance Measures Is patient prescribed a controlled substance at discharge?: Yes When asked, does pt state using other controlled substances?: No If prescribed controlled substance>3 days was MAPS reviewed?: Prescribed <3 Days
== END ==
LOC: PNWHC3 12:34
PROVIDERS: ATTEND Specialist
DX: M51.36 Other intervertebral disc degeneration, lumbar region (principal)
CPT/HCPCS: 99211

== ENCOUNTER → 2023-02-10 | Outpatient (CLI) | payer MEDICAID ==
--- NOTE | 2023-02-13 21:47 | CT ---
EXAMINATION TYPE: CT lumbar spine wo con DATE OF EXAM: 02/10/2023 COMPARISON: MRI 10/10/2022 HISTORY: 32-year-old female M5 4.50, low back pain, no known injury TECHNIQUE: Contiguous axial scanning of the lumbar spine without IV contrast. Coronal and sagittal re constructions performed. CT DLP: 1688.30 mGycm Automated exposure control for dose reduction was used. FINDINGS: There is sclerosis along the ilial sides of the bilateral SI joints most suggestive of osteitis siddiqi nsans ilii and can be correlated clinically. There is a 6 mm nonobstructive left renal stone. Vertebral body heights are preserved and alignment is maintained. Scattered mild facet arthropathy. Mild degenerative disc disease with bulging disc at both L4-L5 and disc osteophyte complex that L5-S1 . No significant spinal canal stenosis. Changes result in mild neuroforaminal stenoses on both sides at L4-L5 and on the right at L5-S1. More moderate on the left at L5-S1. IMPRESSION: 1. MILD DEGENERATIVE DISC DISEASE L4-L5 AND L5-S1 WITH SCATTERED MILD FACET ARTHROPATHY. 2. NO LARGE FOCAL DISC HERNIATION OR SIGNIFICANT SPINAL CANAL STENOSIS IDENTIFIED. 3. CHANGES RESULT IN MILD BILATERAL NEUROFORAMINAL STENOSIS AT L4-L5 AND ON THE RIGHT AT L5-S1. MORE MODERATE ON THE LEFT AT L5-S1. 4. 6 MM NONOBSTRUCTIVE LEFT RENAL CALCULUS. 5. OSTEITIS CONDENSANS ILII.
== END | disposition home or self-care (01) ==
LOC: RADCTMAIN 14:48
PROVIDERS: ATTEND Orthopaedic Surgery
DX: M47.817 Spondylosis without myelopathy or radiculopathy, lumbosacral region (principal); M47.816 Spondylosis without myelopathy or radiculopathy, lumbar region; M48.061 Spinal stenosis, lumbar region without neurogenic claudication; N20.0 Calculus of kidney; M85.39 Osteitis condensans, multiple sites
CPT/HCPCS: 72131

== ENCOUNTER → 2023-03-16 | Outpatient (CLI) | payer MEDICAID ==
[2023-03-16 11:19] LABS: Basophils # (A) 0.06 X 10*3/uL (0.00-0.10); Basophils % (A) 0.9 %; Eosinophils # (A) 0.66 X 10*3/uL (0.04-0.35); Eosinophils % (A) 9.4 %; HCT 39.1 % (37.2-46.3); HGB 12.6 g/dL (12.0-15.0); Lymphocytes # (A) 2.43 X 10*3/uL (0.90-5.00); Lymphocytes % (A) 34.8 %; MCHC 32.2 g/dL (32.0-37.0); MCV 89.9 FL (80.0-97.0); Mean Platelet Volume 9.9 FL (9.5-12.2); Monocytes # (A) 0.48 X 10*3/uL (0.20-1.00); Monocytes % (A) 6.9 %; NRBC Per 100 WBC 0 X 10*3/uL (0.00-0.01); Neutrophils # (A) 3.33 X 10*3/uL (1.80-7.70); Neutrophils % (A) 47.6 %; Platelet Count 342 X 10*3/uL (140-440); RBC 4.35 X 10*6/uL (4.10-5.20); RDW 13.2 % (11.5-14.5); WBC 6.99 X 10*3/uL (4.50-10.00)
[2023-03-16 11:33] LABS: BUN/Creat Ratio 18.29 Ratio (12.00-20.00); Blood Urea Nitrogen 12.8 mg/dL (9.0-27.0); Calcium 9.2 mg/dL (8.7-10.3); Carbon Dioxide 22.5 mmol/L (21.6-31.8); Chloride 105 mmol/L (96-109); Glucose 95 mg/dL (70-110); Potassium 4.7 mmol/L (3.5-5.5); Sodium 139 mmol/L (135-145)
[2023-03-16 18:17] LABS: Appearance,Urine Turbid (Clear); Bilirubin,Urine Negative (Negative); Blood,Urine Small (Negative); Color,Urine Yellow (Yellow); Ketones,Urine Negative (Negative); Nitrite,Urine Negative (Negative); PH, Urine 5.5; Urobilinogen,Urine 0.2 E.U./DL
[2023-03-16 18:24] LABS: Bacteria,Urine 2+ (None Seen)
== END | disposition home or self-care (01) ==
LOC: LABPAT 07:30
PROVIDERS: ATTEND Urology
DX: Z01.812 Encounter for preprocedural laboratory examination (principal); N20.0 Calculus of kidney
CPT/HCPCS: 36415; 80048; 81001; 85025; 87086

== ENCOUNTER 2023-03-21 10:07 | Day surgery (SDC) | payer MEDICAID ==
[2023-03-16 09:42] VITALS: BMI 45.8
--- NOTE | 2023-03-21 09:11 | P.HPIHPCON ---
History of Present Illness H&P Date: 03/21/23 Chief Complaint: Left ureteral, renal stones This is a 32-year-old female with history of a 5 mm left-sided proximal stone, and 7 mm left-sided renal stone, she symptomatic from her stone. Option of left-sided ureteroscopy with holmium laser vs ESWL was discussed with her in detail. she agreed to proceed with left-sided ureteroscopy with holmium laser. Aware of the risk which include but no limited to bleeding, infection, injury to the ureter. Risk of anesthesia was also discussed. She understood all the risk and agreed to proceed Consent for Procedure: I have explained the operation/procedure to the patient, including the risks, benefits, side effects, alternative therapies (including not receiving the proposed treatment or service), the likelihood of the patient achieving his/her goals, and potential recuperation problems for the procedure/sedation/analgesia, as well as any blood products, if indicated. I also explained to the patient the risks, benefits and side effects of the alternatives, as well as the risks related to not receiving the proposed procedure, care, treatment, or services. Past Medical History Past Medical History: Asthma Additional Past Medical History / Comment(s): RLS, kidney stones, abd pain, History of Any Multi-Drug Resistant Organisms: None Reported Past Surgical History: No Surgical Hx Reported Additional Past Surgical History / Comment(s): EGD, PAIN PROCEDURES Past Anesthesia/Blood Transfusion Reactions: No Reported Reaction Additional Past Anesthesia/Blood Transfusion Reaction / Comment(s): has never had GENERAL anesthesia Smoking Status: Never smoker - Past Family History Mother Family Medical History: No Reported History Medications and Allergies Home Medications Medication Instructions Recorded Confirmed Type Albuterol Inhaler [Ventolin Hfa 1 - 2 puff INHALATION RT-Q6H PRN 11/06/15 03/16/23 History Inhaler] Montelukast [Singulair] 10 mg PO HS 09/24/18 03/16/23 History Pramipexole [Mirapex] 0.125 mg PO HS 09/24/18 03/16/23 History Escitalopram [Lexapro] 20 mg PO DAILY 03/16/23 03/16/23 History Fluticasone Propion/Salmeterol 1 inhalation PO DAILY 03/16/23 03/16/23 History [Advair 100-50 Diskus] Gabapentin 300 mg PO DAILY PRN 03/16/23 03/16/23 History Allergies Allergy/AdvReac Type Severity Reaction Status Date / Time No Known Allergies Allergy Verified 03/16/23 09:11
[~2023-03-21 10:07] MED LIST changes: +DEXAMETHASONE SOD PHOSPHATE 4 MG/ML 1 ML VIAL IV ONE; +LIDOCAINE 1% (10MG/ML) FOR IV START INTRADERMA PRN; +METOCLOPRAMIDE 5 MG/ML 2 ML VIAL IVP PRN; +ONDANSETRON 4 MG/2 ML VIAL IVP ONE
--- NOTE | 2023-03-21 10:21 | XR ---
EXAMINATION TYPE: XR KUB DATE OF EXAM: 03/21/2023 10:13 AM CLINICAL INDICATION:Female, 32 years old with history of KIDNEY STONES; [facility] COMPARISON: 09/26/2018 TECHNIQUE: One radiographic view of the abdomen was obtained. FINDINGS: The bowel gas pattern is nonspecific without dilated loops of small or large bowel. There i s no evidence for organomegaly or pneumoperitoneum. The osseous structures are intact. Left renal c alculus measuring 9 mm. Calculus seen within the ureteropelvic Junction prior CT not well visualized. Fecal material and gas are demonstrated throughout the colon and rectum. IMPRESSION: 1. Left 9 mm renal calculus. Left renal pelvis contrast is seen on prior CT not well visualized. 2. Nonspecific bowel gas pattern without radiographic evidence for acute process.
[2023-03-21] MEDS ORDERED: MIDAZOLAM 2 MG/2 ML VIAL IVP ONE (11:08)
[2023-03-21] MEDS ORDERED: fentaNYL (PF) 50 MCG/ML 2 ML AMP ONE (11:10)
[2023-03-21] MEDS ORDERED: LIDOCAINE 1% INJ 10MG/ML (20 ML MDV) ONE (11:10)
[2023-03-21] MEDS ORDERED: PROPOFOL 10 MG/ML 20 ML VIAL IV ONE (11:10)
[2023-03-21] MEDS ORDERED: SUCCINYLCHOLINE CHLORIDE 200 MG/10 ML VIAL IV ONE (11:10)
[2023-03-21] MEDS ORDERED: LIDOCAINE 4% LTA KIT (4 ML) TOPICAL ONE (11:10)
[2023-03-21] MEDS ORDERED: MIDAZOLAM 2 MG/2 ML VIAL ONE (11:10)
[2023-03-21 11:14] VITALS: RESP 16
[2023-03-21 11:22] LABS: Glucose,Whole Blood 101 mg/dL (70-110)
--- NOTE | 2023-03-21 12:29 | P.OP ---
Date of Procedure: 03/21/23 Preoperative Diagnosis: Left ureteral, renal stone Postoperative Diagnosis: Same Procedure(s) Performed: Cystoscopy, left ureteroscopy, holmium laser lithotripsy, stone basketing and stent insertion Implants: 6-[place] by 22 cm stent in the left ureter Anesthesia: KETTY Surgeon: Kingsley Godinez Estimated Blood Loss (ml): 5 Pathology: other (left ureteral stone) Condition: stable Disposition: PACU Indications for Procedure: This is a 32-year-old female with history of a 5 mm left-sided proximal stone, and 7 mm left-sided renal stone, she symptomatic from her stone. Option of left-sided ureteroscopy with holmium laser vs ESWL was discussed with her in detail. she agreed to proceed with left-sided ureteroscopy with holmium laser. Aware of the risk which include but no limited to bleeding, infection, injury to the ureter. Risk of anesthesia was also discussed. She understood all the risk and agreed to proceed Operative Findings: Left sided distal ureteral stone, left-sided midpole stone Description of Procedure: Patient brought to the operating room, general anesthesia was induced. She was prepped and draped in sterile fashion and placed in dorsal lithotomy position. Cystoscopy fitted with 21-[place] sheath was inserted per urethra, cystoscopy was performed which showed no abnormality within the bladder. Attention was then carried to the left ureteral orifice, a semirigid ureteroscope was inserted per urethra, stone was encountered in the distal ureter. Using the holmium laser the stone was fragmented, stone fragments were removed using the stone basket. At this time the ureteroscope was advanced into the proximal ureter, no additional stones or sizable fragments were seen, pullback ureteroscopy was performed which showed no injury to the ureter or any ureteral stones, as ureteroscope was withdrawn, a sensor wire was advanced through. Next a 11-13 Fr access sheath was passed over the wire under fluoroscopy into the proximal ureter. Next a flexible ureteroscope was inserted through the access sheath, renoscopy was performed which showed a large stone in the midpole. Using the holmium laser the stone was dusted, repeat renoscopy showed no sizable fragments or injury to the kidney. On fluoroscopy there was no radiopaque densities visualized. This time pullback ureteroscopy was performed which showed no injury to the ureter or any ureteral stones, as ureteroscope was withdrawn a sensor wire was advanced through. Next a ureteral stent was passed over the wire, the proximal curl was visualized on fluoroscopy and the distal curl was visualized using the cystoscope. The bladder was emptied at the end of the case. Patient tolerated procedure well was taken to recovery in stable condition
[2023-03-21] MEDS: HYDROmorphone 0.5 MG/0.5 ML SYRINGE IVP PRN ×2 (12:34→12:48)
--- NOTE | 2023-03-21 12:38 | FL ---
EXAMINATION TYPE: FL guidance operating room Intraoperative/procedural fluoroscopic services were pro vided. Total fluoroscopy time is 12 seconds with a total of 3 submitted images to PACS. Please see th e operative/procedural note for further details. DAP: [id number] Gycm2
[2023-03-21 12:56] VITALS: TEMP 97.8
[2023-03-21] MEDS ORDERED: KETOROLAC 15 MG/ML 1 ML VIAL ONE (13:20)
[2023-03-21 14:11] VITALS: BP 106/74; PULSE 94
== END 2023-03-21 14:36 | disposition home or self-care (01) ==
LOC: OR 10:07
PROVIDERS: ATTEND Urology
DX: N20.2 Calculus of kidney with calculus of ureter (principal); F32.A Depression, unspecified; J45.909 Unspecified asthma, uncomplicated; Z79.899 Other long term (current) drug therapy; Z79.51 Long term (current) use of inhaled steroids; Z87.442 Personal history of urinary calculi
CPT/HCPCS: 52356; 81025; 82365; 74018; C2625; C1894; C1758; C1769; J2250; J0330; J1100; J0690; J2405; J2001; J3010; J1885; J2704; J1170

== ENCOUNTER → 2024-05-02 | Outpatient (CLI) | payer MEDICAID ==
[2024-05-02 19:44] LABS: Basophils # (A) 0.06 X 10*3/uL (0.00-0.10); Basophils % (A) 0.8 %; Eosinophils # (A) 0.68 X 10*3/uL (0.04-0.35); Eosinophils % (A) 8.9 %; HCT 43.2 % (37.2-46.3); HGB 14.3 g/dL (12.0-15.0); Lymphocytes % (A) 26.2 %; MCH 29.7 pg (27.0-32.0); MCHC 33.1 g/dL (32.0-37.0); MCV 89.6 FL (80.0-97.0); Mean Platelet Volume 10.3 FL (9.5-12.2); Monocytes # (A) 0.45 X 10*3/uL (0.20-1.00); Monocytes % (A) 5.9 %; NRBC Per 100 WBC 0 X 10*3/uL (0.00-0.01); Neutrophils # (A) 4.41 X 10*3/uL (1.80-7.70); Neutrophils % (A) 57.9 %; Platelet Count 366 X 10*3/uL (140-440); RBC 4.82 X 10*6/uL (4.10-5.20); RDW 12.3 % (11.5-14.5); WBC 7.62 X 10*3/uL (4.50-10.00)
[2024-05-02 19:53] LABS: ALT 87 U/L (8-44); AST 54 U/L (13-35); Albumin 4.4 g/dL (3.8-4.9); Albumin/Globulin Ratio 1.57 Ratio (1.60-3.17); Alkaline Phosphatase 131 U/L (41-126); Amylase 56 U/L (23-121); BUN/Creat Ratio 16.25 Ratio (12.00-20.00); Calcium 9.5 mg/dL (8.7-10.3); Carbon Dioxide 22.6 mmol/L (21.6-31.8); Chloride 102 mmol/L (96-109); Globulin 2.8 g/dL (1.6-3.3); Glucose 79 mg/dL (70-110); Lipase 19 U/L (14-63); Potassium 4.6 mmol/L (3.5-5.5); Sodium 136 mmol/L (135-145); Total Bilirubin 1.3 mg/dL (0.3-1.2); Total Protein 7.2 g/dL (6.2-8.2)
== END | disposition home or self-care (01) ==
LOC: LABWHC1 13:22
PROVIDERS: ATTEND Family Medicine
DX: R10.9 Unspecified abdominal pain (principal)
CPT/HCPCS: 36415; 80053; 82150; 83690; 85025

== ENCOUNTER → 2024-05-15 | Outpatient (CLI) | payer MEDICAID ==
--- NOTE | 2024-05-15 15:30 | CT ---
EXAMINATION TYPE: CT abdomen pelvis w con CT DLP: 1504.7 mGycm, Automated exposure control for dose reduction was used. DATE OF EXAM: 05/15/2024 3:22 PM COMPARISON: KUB radiograph 03/21/2023, CT head and pelvis 11/06/2015 CLINICAL INDICATION:Female, 33 years old with history of R10.84 GENERALIZED ABDOMINAL PAIN, R11.0 CHRIS SEA; right sided abdominal pain TECHNIQUE: Standard CT of the abdomen and pelvis following the administration of 100 cc of Isovue 3 00 IV contrast material and oral contrast. Coronal and sagittal reformats were performed. FINDINGS: LOWER CHEST: Tiny left Bochdalek hernia containing fat. The visualized lung bases are clear. ABDOMEN LIVER: Unremarkable GALLBLADDER AND BILE DUCTS: Unremarkable. PANCREAS: Unremarkable. SPLEEN: Unremarkable. ADRENAL GLANDS: Unremarkable. KIDNEYS AND URETERS: No evidence of hydronephrosis or renal calculus. The kidneys enhance symmetrical ly. Contrast is demonstrated within both collecting systems and proximal ureters on the delayed phase . PELVIS BLADDER: Unremarkable REPRODUCTIVE: Unremarkable. ABDOMEN & PELVIS STOMACH AND BOWEL: Stomach and duodenum are unremarkable. Mild amount of stool is present throughout the colon. No focal bowel wall thickening or surrounding inflammatory changes. Enteric contrast reach es the distal small bowel. Small bowel feces sign without dilated small bowel. The appendix is within normal limits. No evidence of bowel obstruction. PERITONEUM: No evidence of pneumoperitoneum or free fluid. VASCULATURE: No evidence of aortic aneurysm. MUSCULOSKELETAL: No acute osseous abnormalities. Incidental osteitis condensans ilii bilaterally. LYMPH NODES: No evidence for lymphadenopathy. SOFT TISSUE/ABDOMINAL WALL: Unremarkable IMPRESSION: 1. No CT evidence for acute abdominopelvic process. 2. Small bowel feces sign without dilated small bowel. Findings suggest slow bowel transit. [facility], , 05/15/2024 3:28 PM
== END | disposition home or self-care (01) ==
LOC: RADCTMAIN 13:37
PROVIDERS: ATTEND Family Medicine
DX: R10.84 Generalized abdominal pain (principal); R11.0 Nausea
CPT/HCPCS: 74177; Q9967

== ENCOUNTER 2024-05-29 19:36 | Emergency (ER) | payer MEDICAID ==
[2024-05-29 19:45] VITALS: RESP 18
--- NOTE | 2024-05-29 20:20 | ED ---
General Adult HPI - General Chief complaint: Abdominal Pain Stated complaint: abd pain Time Seen by Provider: 05/29/24 19:46 Source: patient, RN notes reviewed Mode of arrival: ambulatory Limitations: no limitations - History of Present Illness Initial comments: 33-year-old female presents to the emergency department for evaluation of right upper quadrant abdominal pain. Patient notes that this been going on for a few months. She notes that it comes on typically after she eats. She states that it lasts anywhere from 30 minutes to multiple hours. She states that the pain radiates to her back into her right shoulder blade. She had a CT scan done about 2 weeks ago which she states was unremarkable. She denies any fever, chills. Endorses nausea, vomiting, diarrhea. She does not get any relief with acetaminophen, ibuprofen, heating pad. - Related Data Home Medications Medication Instructions Recorded Confirmed Albuterol Inhaler [Ventolin Hfa 1 - 2 puff INHALATION RT-Q6H PRN 11/06/15 03/21/23 Inhaler] Montelukast [Singulair] 10 mg PO HS 09/24/18 03/21/23 Pramipexole [Mirapex] 0.125 mg PO HS 09/24/18 03/16/23 Escitalopram [Lexapro] 20 mg PO DAILY 03/16/23 03/16/23 Fluticasone Propion/Salmeterol 1 inhalation PO DAILY 03/16/23 03/21/23 [Advair 100-50 Diskus] Gabapentin 300 mg PO DAILY PRN 03/16/23 03/16/23 Previous Rx's Medication Instructions Recorded Cephalexin [Keflex] 500 mg PO Q6HR 1 Days #4 cap 03/21/23 Ketorolac [Toradol] 10 mg PO Q6HR PRN #15 tab 03/21/23 Ondansetron Odt [Zofran Odt] 4 mg PO Q8HR PRN #10 tab 05/29/24 Allergies Allergy/AdvReac Type Severity Reaction Status Date / Time No Known Allergies Allergy Verified 05/29/24 19:45 Review of Systems ROS Statement: Those systems with pertinent positive or pertinent negative responses have been documented in the HPI. ROS Other: All systems not noted in ROS Statement are negative. Past Medical History Past Medical History: Asthma Additional Past Medical History / Comment(s): RLS, kidney stones, abd pain, History of Any Multi-Drug Resistant Organisms: None Reported Past Surgical History: No Surgical Hx Reported Additional Past Surgical History / Comment(s): EGD Past Anesthesia/Blood Transfusion Reactions: No Reported Reaction Additional Past Anesthesia/Blood Transfusion Reaction / Comment(s): has never had anesthesia Past Psychological History: Anxiety Smoking Status: Never smoker Past Alcohol Use History: None Reported Past Drug Use History: None Reported - Past Family History Mother Family Medical History: No Reported History General Exam Limitations: no limitations General appearance: alert, in no apparent distress Head exam: Present: atraumatic, normocephalic, normal inspection Eye exam: Present: normal appearance, PERRL, EOMI. Absent: scleral icterus, conjunctival injection, periorbital swelling ENT exam: Present: normal exam, mucous membranes moist Respiratory exam: Present: normal lung sounds bilaterally. Absent: respiratory distress, wheezes, rales, rhonchi, stridor Cardiovascular Exam: Present: regular rate, normal rhythm, normal heart sounds. Absent: systolic murmur, diastolic murmur, rubs, gallop, clicks GI/Abdominal exam: Present: soft, tenderness (RUQ), normal bowel sounds. Absent: distended, guarding, rebound, rigid Extremities exam: Present: normal inspection, full ROM, normal capillary refill. Absent: tenderness, pedal edema, joint swelling, calf tenderness Neurological exam: Present: alert, oriented X3 Psychiatric exam: Present: normal affect, normal mood Skin exam: Present: warm, dry, intact, normal color. Absent: rash Course Vital Signs 05/29/24 05/29/24 05/29/24 19:43 22:18 22:53 Temperature 98.4 F 98.3 F 98.0 F Pulse Rate 98 78 75 Respiratory 18 18 18 Rate Blood Pressure 123/82 119/76 126/70 O2 Sat by Pulse 98 100 96 Oximetry Medical Decision Making - Medical Decision Making Was pt. sent in by a medical professional or institution (, PA, SUPERVISOR ENGRAVING, urgent care, hospital, or skilled nursing...) When possible be specific @ -No Did you speak to anyone other than the patient for history (EMS, parent, family, police, friend...)? What history was obtained from this source @ -No Did you review nursing and triage notes (agree or disagree)? Why? @ -I reviewed and agree with nursing and triage notes Were old charts reviewed (outside hosp., previous admission, EMS record, old EKG, old radiological studies, urgent care reports/EKG's, skilled nursing records)? Report findings @ -No old charts were reviewed Differential Diagnosis (chest pain, altered mental status, abdominal pain women, abdominal pain men, vaginal bleeding, weakness, fever, dyspnea, syncope, headache, dizziness, GI bleed, back pain, seizure, CVA, palpatations, mental health, musculoskeletal)? @ -Differential Abdominal Pain Women: Appendicitis, Cholecystitis, diverticulosis, ischemic bowel, pancreatitis, hepatitis, UTI, gastroenteritis, AAA, incarcerated hernia, bowel obstruction, constipation, inflammatory bowel, hepatitis, peptic ulcer disease, splenic infarction, perforated viscus, vulvitis, ovarian torsion, PID, kidney stone, placenta abruption, this is not meant to be an all-inclusive list EKG interpreted by me (3pts min.). @ -None X-rays interpreted by me (1pt min.). @ -None done CT interpreted by me (1pt min.). @ -None done U/S interpreted by me (1pt. min.). @ -Gallbladder ultrasound shows cholelithiasis, no evidence of acute cholecystitis What testing was considered but not performed or refused? (CT, X-rays, U/S, labs)? Why? @ -None What meds were considered but not given or refused? Why? @ -None Did you discuss the management of the patient with other professionals (professionals i.e. , PA, SUPERVISOR ENGRAVING, lab, RT, psych nurse, aids social worker, internal investigator, teacher, staff combat information center officer, business case analyst)? Give summary @ -No Was smoking cessation discussed for >3mins.? @ -No Was critical care preformed (if so, how long)? @ -No Were there social determinants of health that impacted care today? How? (Homelessness, low income, unemployed, alcoholism, drug addiction, transportation, low edu. Level, literacy, decrease access to med. care, custodial, rehab)? @ -No Was there de-escalation of care discussed even if they declined (Discuss DNR or withdrawal of care, Hospice)? DNR status @ -No What co-morbidities impacted this encounter? (DM, HTN, Smoking, COPD, CAD, Cancer, CVA, ARF, Chemo, Hep., AIDS, mental health diagnosis, sleep apnea, morbid obesity)? @ -None Was patient admitted / discharged? Hospital course, mention meds given and route, prescriptions, significant lab abnormalities, going to OR and other pertinent info. @ -Discharge. Patient presented to the emergency department for evaluation of abdominal painPatient presented to the emergency department for evaluation of abdominal pain radiating to her right shoulder blade. Laboratory studies obtained revealing WBC of 10.8, hemoglobin 13.3; CMP shows mild hyponatremia with a sodium of 135, potassium within normal limits. No significant lactic acidosis. Transaminitis with AST 320, ALT 262, alk phos 281. Bilirubin within normal limits at 1.3. Lipase 316. UA shows large blood, greater than 182 RBCs, 34 WBCs. Patient is on her menstrual cycle. She has a negative urine hCG. Ultrasound of the gallbladder obtained reveals cholelithiasis with no evidence o f acute cholecystitis. Patient was provided fluid hydration in the emergency department along with medication for pain and nausea control. She does report significant improvement in her symptoms following this. With the transaminitis, I offered to call general surgery for potential admission. Patient would prefer to go home. I advised her that she should follow-up with general surgery on outpatient basis if she is to go home. She is understanding and agreeable with this plan. Patient stable at time of discharge. Case discussed with Dr. Carrion. Undiagnosed new problem with uncertain prognosis? @ -No Drug Therapy requiring intensive monitoring for toxicity (Heparin, Nitro, Insulin, Cardizem)? @ -No Were any procedures done? @ -No Diagnosis/symptom? @ -Biliary colic Acute, or Chronic, or Acute on Chronic? @ -Acute Uncomplicated (without systemic symptoms) or Complicated (systemic symptoms)? @ -Uncomplicated Side effects of treatment? @ -No Exacerbation, Progression, or Severe Exacerbation? @ -No Poses a threat to life or bodily function? How? (Chest pain, [place], CA, pneumonia, PE, COPD, DKA, ARF, appy, cholecystitis, CVA, Diverticulitis, Homicidal, Suicidal, threat to staff... and all critical care pts) @ -No - Lab Data Result diagrams: 05/29/24 20:15 05/29/24 20:15 Lab Results 05/29/24 05/29/24 05/29/24 Range/Units 20:15 20:15 20:15 WBC 10.8 H (3.8-10.6) k/uL RBC 4.64 (3.80-5.40) m/uL Hgb 13.3 (11.4-16.0) gm/dL Hct 41.0 (34.0-46.0) % MCV 88.4 (80.0-100.0) fL MCH 28.7 (25.0-35.0) pg MCHC 32.5 (31.0-37.0) g/dL RDW 12.4 (11.5-15.5) % Plt Count 350 (150-450) k/uL MPV 7.6 Neutrophils % 65 % Lymphocytes % 22 % Monocytes % 6 % Eosinophils % 5 % Basophils % 0 % Neutrophils # 7.0 (1.3-7.7) k/uL Lymphocytes # 2.4 (1.0-4.8) k/uL Monocytes # 0.6 (0-1.0) k/uL Eosinophils # 0.6 (0-0.7) k/uL Basophils # 0.1 (0-0.2) k/uL Sodium 135 L (137-145) mmol/L Potassium 4.1 (3.5-5.1) mmol/L Chloride 101 (98-107) mmol/L Carbon Dioxide 24 (22-30) mmol/L Anion Gap 10 mmol/L BUN 20 H (7-17) mg/dL Creatinine 0.69 (0.52-1.04) mg/dL Est GFR (CKD-EPI)AfAm >90 (>60 ml/min/1.73 sqM) Est GFR (CKD-EPI)NonAf >90 (>60 ml/min/1.73 sqM) Glucose 83 (74-99) mg/dL Plasma Lactic Acid Willy 0.6 L (0.7-2.0) mmol/L Calcium 10.0 (8.4-10.2) mg/dL Total Bilirubin 1.3 (0.2-1.3) mg/dL AST 320 H (14-36) U/L ALT 262 H (4-34) U/L Alkaline Phosphatase 281 H (38-126) U/L Total Protein 7.2 (6.3-8.2) g/dL Albumin 4.2 (3.5-5.0) g/dL Amylase 61 (30-110) U/L Lipase 316 H (23-300) U/L Urine Color Urine Appearance (Clear) Urine pH (5.0-8.0) Ur Specific [place] (1.001-1.035) Urine Protein (Negative) Urine Glucose (UA) (Negative) Urine Ketones (Negative) Urine Blood (Negative) Urine Nitrite (Negative) Urine Bilirubin (Negative) Urine Urobilinogen (<2.0) mg/dL Ur Leukocyte Esterase (Negative) Urine RBC (0-5) /hpf Urine WBC (0-5) /hpf Ur Squamous Epith Cells (0-4) /hpf Urine Bacteria (None) /hpf Urine Mucus (None) /hpf Urine HCG, Qual (Not Detectd) 05/29/24 05/29/24 Range/Units 22:00 22:00 WBC (3.8-10.6) k/uL RBC (3.80-5.40) m/uL Hgb (11.4-16.0) gm/dL Hct (34.0-46.0) % MCV (80.0-100.0) fL MCH (25.0-35.0) pg MCHC (31.0-37.0) g/dL RDW (11.5-15.5) % Plt Count (150-450) k/uL MPV Neutrophils % % Lymphocytes % % Monocytes % % Eosinophils % % Basophils % % Neutrophils # (1.3-7.7) k/uL Lymphocytes # (1.0-4.8) k/uL Monocytes # (0-1.0) k/uL Eosinophils # (0-0.7) k/uL Basophils # (0-0.2) k/uL Sodium (137-145) mmol/L Potassium (3.5-5.1) mmol/L Chloride (98-107) mmol/L Carbon Dioxide (22-30) mmol/L Anion Gap mmol/L BUN (7-17) mg/dL Creatinine (0.52-1.04) mg/dL Est GFR (CKD-EPI)AfAm (>60 ml/min/1.73 sqM) Est GFR (CKD-EPI)NonAf (>60 ml/min/1.73 sqM) Glucose (74-99) mg/dL Plasma Lactic Acid Willy (0.7-2.0) mmol/L Calcium (8.4-10.2) mg/dL Total Bilirubin (0.2-1.3) mg/dL AST (14-36) U/L ALT (4-34) U/L Alkaline Phosphatase (38-126) U/L Total Protein (6.3-8.2) g/dL Albumin (3.5-5.0) g/dL Amylase (30-110) U/L Lipase (23-300) U/L Urine Color Light Red Urine Appearance Cloudy H (Clear) Urine pH 5.5 (5.0-8.0) Ur Specific [place] 1.020 (1.001-1.035) Urine Protein 1+ H (Negative) Urine Glucose (UA) Negative (Negative) Urine Ketones Trace H (Negative) Urine Blood Large H (Negative) Urine Nitrite Negative (Negative) Urine Bilirubin Negative (Negative) Urine Urobilinogen <2.0 (<2.0) mg/dL Ur Leukocyte Esterase Small H (Negative) Urine RBC >182 H (0-5) /hpf Urine WBC 34 H (0-5) /hpf Ur Squamous Epith Cells 3 (0-4) /hpf Urine Bacteria Rare H (None) /hpf Urine Mucus Rare H (None) /hpf Urine HCG, Qual Not Detected (Not Detectd) Disposition Clinical Impression: Transaminitis, Biliary colic Disposition: HOME SELF-CARE Condition: Stable Instructions (If sedation given, give patient instructions): Acute Abdominal Pain (ED) Additional Instructions: Please follow-up with your primary care provider and general surgery. Please have your LFTs rechecked by your primary care provider in around 1 week. Return to the emergency department for new or worsening symptoms as we discussed. Prescriptions: Ondansetron Odt [Zofran Odt] 4 mg PO Q8HR PRN #10 tab PRN Reason: Nausea Is patient prescribed a controlled substance at d/c from ED?: No Referrals: Demi Krishna MD [Primary Care Provider] - 1-2 days Edmund Baugh MD [Medical Doctor] - 1-2 days
[2024-05-29] MEDS: PANTOPRAZOLE 40 MG/10 ML VIAL IVP STA (20:38)
[2024-05-29] MEDS: KETOROLAC 15 MG/ML 1 ML VIAL IVP STA (20:40)
[2024-05-29] MEDS: ONDANSETRON 4 MG/2 ML VIAL IVP STA (20:41)
[2024-05-29] MEDS: LACTATED RINGERS 1,000 ML IV ONE (20:43)
[2024-05-29 20:45] LABS: Basophils # (A) 0.1 k/uL (0-0.2); Basophils % (A) 0 %; Eosinophils # (A) 0.6 k/uL (0-0.7); Eosinophils % (A) 5 %; HGB 13.3 gm/dL (11.4-16.0); Lymphocytes # (A) 2.4 k/uL (1.0-4.8); Lymphocytes % (A) 22 %; MCH 28.7 pg (25.0-35.0); MCHC 32.5 g/dL (31.0-37.0); MCV 88.4 fL (80.0-100.0); Mean Platelet Volume 7.6; Monocytes # (A) 0.6 k/uL (0-1.0); Monocytes % (A) 6 %; Neutrophils % (A) 65 %; Platelet Count 350 k/uL (150-450); RBC 4.64 m/uL (3.80-5.40); RDW 12.4 % (11.5-15.5); WBC 10.8 k/uL (3.8-10.6)
[2024-05-29 20:57] LABS: ALT 262 U/L (4-34); AST 320 U/L (14-36); African American GFR (CKD) >90 (>60 ml/min/1.73 sqM); Albumin 4.2 g/dL (3.5-5.0); Alkaline Phosphatase 281 U/L (38-126); Amylase 61 U/L (30-110); Anion Gap 10 mmol/L; Blood Urea Nitrogen 20 mg/dL (7-17); Carbon Dioxide 24 mmol/L (22-30); Chloride 101 mmol/L (98-107); Glucose 83 mg/dL (74-99); Lipase 316 U/L (23-300); Non-African American GFR(CKD) >90 (>60 ml/min/1.73 sqM); Potassium 4.1 mmol/L (3.5-5.1); Sodium 135 mmol/L (137-145); Total Bilirubin 1.3 mg/dL (0.2-1.3); Total Protein 7.2 g/dL (6.3-8.2)
[2024-05-29 22:06] LABS: Appearance,Urine Cloudy (Clear); Bacteria,Urine Rare /hpf; Bilirubin,Urine Negative (Negative); Blood,Urine Large (Negative); Color,Urine Light Red; Glucose,Urine (UA) Negative (Negative); Ketones,Urine Trace (Negative); Leukocyte Esterase,Urine Small (Negative); Mucus,Urine Rare /hpf; Nitrite,Urine Negative (Negative); PH, Urine 5.5 (5.0-8.0); Protein,Urine 1+ (Negative); RBC,Urine >182 /hpf (0-5); Squamous Epithelial Cell,Urine 3 /hpf (0-4); Urobilinogen,Urine <2.0 mg/dL (<2.0); WBC,Urine 34 /hpf (0-5)
--- NOTE | 2024-05-29 22:06 | US ---
EXAMINATION TYPE: US gallbladder DATE OF EXAM: 05/29/2024 COMPARISON: 05/15/2024 CLINICAL INDICATION: Female, 33 years old with history of RUQ pain; patient states RUQ pain. nausea TECHNIQUE: Grayscale and color Doppler imaging of the right upper quadrant was performed. FINDINGS: EXAM MEASUREMENTS: Liver Length: 13.2 cm Gallbladder Wall: 0.3 cm CBD: 0.4 cm Right Kidney: 11.2 x 5.2 x 4.8 cm CARD GRADER NOTES:limited due to overlying bowel gas and pt body habitus, intercostal views used Pancreas: Obscured by bowel gas Liver: coarse, increased echogenicity , no suspicious masses or dilated ducts. Gallbladder: multiple mobile echogenic foci seen, wall upper limits of normal Evidence for sonographic Ron's sign: no CBD: wnl Right Kidney: ? possible dilated renal pelvis IMPRESSION: 1. No evidence for acute process. 2. Cholelithiasis. [facility], , 05/29/2024 10:03 PM
[2024-05-29 22:56] VITALS: BP 126/70; PULSE 75; TEMP 98
[2024-05-29] MEDS ORDERED: ONDANSETRON 4 MG ODT STARTER PACK 2 TAB BTL PO STA (23:04)
== END 2024-05-29 23:08 | disposition home or self-care (01) ==
LOC: EC 19:36
DX: K80.70 Calculus of gallbladder and bile duct without cholecystitis without obstruction (principal); R74.01 Elevation of levels of liver transaminase levels
CPT/HCPCS: 36415; 80053; 82150; 83605; 83690; 85025; 81001; 81025; 87086; 76705; 99284; 96374; 96375 ×2; 96361; J2405; J1885; J2470

== ENCOUNTER 2024-06-03 09:26 | Day surgery (SDC) | payer MEDICAID ==
[2024-06-03] MEDS: IV FLUID CONTINUATION 1,000 ML IV ONE ×3 (10:05→15:00)
[2024-06-03] MEDS: LACTATED RINGERS 1,000 ML IV SCH (10:10)
[2024-06-03] MEDS: MIDAZOLAM 2 MG/2 ML VIAL IV PRN (10:10)
[2024-06-03] MEDS: DEXAMETHASONE SOD PHOSPHATE 4 MG/ML 1 ML VIAL IV ONE (10:10)
[2024-06-03] MEDS: ONDANSETRON 4 MG/2 ML VIAL IVP ONE (10:10)
[2024-06-03] MEDS: ACETAMINOPHEN TAB 500 MG TAB PO PRN (10:11)
[2024-06-03] MEDS: HEPARIN SODIUM,PORCINE 5,000 UNIT/ML 1 ML VIAL SQ PRN (10:11)
[2024-06-03 10:18] LABS: HCT 40.6 % (34.0-46.0); HGB 13.5 gm/dL (11.4-16.0); MCH 29.7 pg (25.0-35.0); MCHC 33.3 g/dL (31.0-37.0); MCV 89.3 fL (80.0-100.0); Mean Platelet Volume 7.4; Platelet Count 338 k/uL (150-450); RBC 4.55 m/uL (3.80-5.40); RDW 12.6 % (11.5-15.5); WBC 6.2 k/uL (3.8-10.6)
[2024-06-03 10:35] LABS: ALT 60 U/L (4-34); AST 21 U/L (14-36); African American GFR (CKD) >90 (>60 ml/min/1.73 sqM); Albumin 3.9 g/dL (3.5-5.0); Alkaline Phosphatase 114 U/L (38-126); Anion Gap 6 mmol/L; Blood Urea Nitrogen 16 mg/dL (7-17); Calcium 9.3 mg/dL (8.4-10.2); Carbon Dioxide 26 mmol/L (22-30); Chloride 105 mmol/L (98-107); Glucose 95 mg/dL (74-99); Non-African American GFR(CKD) >90 (>60 ml/min/1.73 sqM); Potassium 4.2 mmol/L (3.5-5.1); Sodium 137 mmol/L (137-145); Total Bilirubin 0.8 mg/dL (0.2-1.3); Total Protein 6.9 g/dL (6.3-8.2)
--- NOTE | 2024-06-03 11:00 | P.GSHP ---
History of Present Illness H&P Date: 06/03/24 Chief Complaint: Chronic cholecystitis 33-year-old female presents for cholecystectomy. Patient works here as a nurse and she and I have discussed her case by phone on a few occasions. Patient went to the ER last week as she was waiting to have her elective outpatient ultr asound performed. In the ER she had lab work and ultrasound and CAT scan performed. Patient had evidence of cholecystitis along with elevated liver enzymes consistent with choledocholithiasis. Today's labs were repeated. She feels better over the weekend. Still has some mildly darker urine than normal but much better than last week. Labs are almost back to normal. Mild nausea. Some bloating. Pain has been going on and off for the last few months. Worse over the last few weeks. Past Medical History Past Medical History: Asthma Additional Past Medical History / Comment(s): RLS, kidney stones, abd pain, intermittent n/v & diarrhea x one month History of Any Multi-Drug Resistant Organisms: None Reported Past Surgical History: No Surgical Hx Reported Additional Past Surgical History / Comment(s): EGD & colonoscopy, lithotripsy & ureteral stent Past Anesthesia/Blood Transfusion Reactions: No Reported Reaction Additional Past Anesthesia/Blood Transfusion Reaction / Comment(s): has never had anesthesia Smoking Status: Never smoker - Past Family History Mother Family Medical History: No Reported History Medications and Allergies Home Medications Medication Instructions Recorded Confirmed Type Albuterol Inhaler [Ventolin Hfa 1 - 2 puff INHALATION RT-Q6H PRN 11/06/15 06/03/24 History Inhaler] Pramipexole [Mirapex] 0.125 mg PO HS 09/24/18 05/31/24 History Escitalopram [Lexapro] 20 mg PO DAILY 03/16/23 05/31/24 History Fluticasone Propion/Salmeterol 1 inhalation PO DAILY 03/16/23 06/03/24 History [Advair 100-50 Diskus] Ondansetron Odt [Zofran Odt] 4 mg PO Q8HR PRN #10 tab 05/29/24 05/31/24 Rx Allergies Allergy/AdvReac Type Severity Reaction Status Date / Time No Known Allergies Allergy Verified 06/03/24 09:55 Surgical - Exam Vital Signs Temp Pulse Resp BP Pulse Ox 97.2 F L 90 18 101/63 100 06/03/24 09:50 06/03/24 09:50 06/03/24 09:50 06/03/24 09:50 06/03/24 09:50 Physical exam: General: Well-developed, well-nourished HEENT: Normocephalic, sclerae nonicteric Abdomen: Nontender, nondistended Extremities: No edema Neuro: Alert and oriented Results - Labs 06/03/24 10:04 06/03/24 10:04 Abnormal Lab Results - Last 24 Hours (Table) 06/03/24 Range/Units 10:04 ALT 60 H (4-34) U/L Diabetes panel 06/03/24 Range/Units 10:04 Sodium 137 (137-145) mmol/L Potassium 4.2 (3.5-5.1) mmol/L Chloride 105 (98-107) mmol/L Carbon Dioxide 26 (22-30) mmol/L BUN 16 (7-17) mg/dL Creatinine 0.72 (0.52-1.04) mg/dL Glucose 95 (74-99) mg/dL Calcium 9.3 (8.4-10.2) mg/dL AST 21 (14-36) U/L ALT 60 H (4-34) U/L Alkaline Phosphatase 114 (38-126) U/L Total Protein 6.9 (6.3-8.2) g/dL Albumin 3.9 (3.5-5.0) g/dL Calcium panel 06/03/24 Range/Units 10:04 Calcium 9.3 (8.4-10.2) mg/dL Albumin 3.9 (3.5-5.0) g/dL Pituitary panel 06/03/24 Range/Units 10:04 Sodium 137 (137-145) mmol/L Potassium 4.2 (3.5-5.1) mmol/L Chloride 105 (98-107) mmol/L Carbon Dioxide 26 (22-30) mmol/L BUN 16 (7-17) mg/dL Creatinine 0.72 (0.52-1.04) mg/dL Glucose 95 (74-99) mg/dL Calcium 9.3 (8.4-10.2) mg/dL Adrenal panel 06/03/24 Range/Units 10:04 Sodium 137 (137-145) mmol/L Potassium 4.2 (3.5-5.1) mmol/L Chloride 105 (98-107) mmol/L Carbon Dioxide 26 (22-30) mmol/L BUN 16 (7-17) mg/dL Creatinine 0.72 (0.52-1.04) mg/dL Glucose 95 (74-99) mg/dL Calcium 9.3 (8.4-10.2) mg/dL Total Bilirubin 0.8 (0.2-1.3) mg/dL AST 21 (14-36) U/L ALT 60 H (4-34) U/L Alkaline Phosphatase 114 (38-126) U/L Total Protein 6.9 (6.3-8.2) g/dL Albumin 3.9 (3.5-5.0) g/dL Assessment and Plan (1) Chronic cholecystitis Narrative/Plan: 33-year-old female with chronic cholecystitis and recent choledocholithiasis. Will proceed with laparoscopic, possible open cholecystectomy at this time. Risks of bleeding, infection, bile leak, bile duct injury, retained common bile duct stone, trocar injury, conversion to an open procedure, hernia, anesthesia related complications were reviewed. The patient understands and wishes to proceed. Current Visit: Yes Status: Acute Code(s): K81.1 - CHRONIC CHOLECYSTITIS SNOMED Code(s): 38391987
[2024-06-03] MEDS ORDERED: fentaNYL (PF) 50 MCG/ML 2 ML AMP ONE (11:34)
[2024-06-03] MEDS ORDERED: GLYCOPYRROLATE 0.2 MG/ML 2 ML VIAL ONE (11:34)
[2024-06-03] MEDS ORDERED: ROCURONIUM 10 MG/ML (5 ML VIAL) IV ONE (11:34)
[2024-06-03] MEDS: ceFAZolin 2 GM in DEXTROSE 5% IN WATER 50 ML IVPB PRN (11:34)
[2024-06-03] MEDS ORDERED: PROPOFOL 10 MG/ML 20 ML VIAL IV ONE (11:34)
[2024-06-03] MEDS ORDERED: KETOROLAC 30 MG/ML 1 ML VIAL ONE (11:34)
[2024-06-03] MEDS ORDERED: MIDAZOLAM 2 MG/2 ML VIAL ONE (11:34)
[2024-06-03] MEDS ORDERED: HYDROmorphone (PF) 1 MG/ML ONE (11:34)
[2024-06-03] MEDS ORDERED: NEOSTIGMINE 1 MG/ML 10 ML VIAL ONE (11:34)
[2024-06-03] MEDS ORDERED: LIDOCAINE 1% INJ 10MG/ML (20 ML MDV) ONE (11:34)
[2024-06-03] MEDS: BUPIVACAINE (PF) 0.25% 30 ML VIAL SQ ONE (11:54)
[2024-06-03] MEDS: ALBUTEROL NEBULIZED 2.5 MG/3 ML INHALATION STA (13:01)
[2024-06-03 13:06] VITALS: TEMP 98
[2024-06-03] MEDS ORDERED: ACETAMINOPHEN TAB 325 MG TAB PO SCH (13:15)
--- NOTE | 2024-06-03 13:16 | P.OP ---
Date of Procedure: 06/03/24 Procedure(s) Performed: PREOPERATIVE DIAGNOSIS: Chronic cholecystitis with recent suspected choledocholithiasis POSTOPERATIVE DIAGNOSIS: Same PROCEDURE: Laparoscopic cholecystectomy SURGEON: Amauri EBL: 10 cc ANESTHESIA: Gen. COMPLICATIONS: None OPERATIVE PROCEDURE: The patient was brought and placed on the operating room table in the supine position. The patient was placed under general anesthesia at that time. The abdomen was prepped and draped in the usual sterile fashion. A small vertical infraumbilical incision was made. The fascia was grasped with the Nathan forceps. The fascia was retracted anteriorly. The Veress needle was advanced into the peritoneal cavity. Saline did not drop freely through the syringe. The patient had a thick abdominal wall and rather than attempt a second time I decided to use an optical trocar in the right upper quadrant. A 5 mm incision was made in the right upper quadrant and using the optical trocar I easily entered the peritoneal cavity. Full insufflation took place. There was no evidence of peritoneal penetration with the Veress needle at the umbilicus. The 5 mm trocar was placed at the umbilicus under direct visualization. The patient was then placed in the reverse Trendelenburg right side up position. The camera was inserted through the umbilical site. An additional 12 mm trocar was placed in the epigastrium under direct visualization as well as a additional 5 mm trocar in the right upper quadrant laterally under direct visualization. The patient's gallbladder was chronically inflamed with some adhesions present. A few of these adhesions between the omentum and the gallbladder were divided using clips. It was distended and longer than the average gallbladder would be. The gallbladder was retracted superiorly and laterally. The peritoneum overlying the infundibulum was bluntly dissected. The patient's cystic duct was visualized. The junction between the cystic duct common and hepatic duct was identified. The critical view of safety was achieved after blunt dissection. The cystic duct was then divided after placement of 3 12 mm clips on the patient's side and one on the specimen side. The cystic artery was identified and clipped as well. A small vessel was seen along the gallbladder fossa and clipped as well. The gallbladder was then removed from the liver bed using electrocautery. The gallbladder was then removed from the epigastric trocar site with an Endo Catch bag. The gallbladder fossa was irrigated with saline. There was no evidence of any bleeding or biliary drainage seen. The fascia at the 12 millimeter site was closed using a Marco Antonio-Navid 0 Vicryl stitch. The trochars were then removed. The skin at all 4 sites was closed using a 4-0 Monocryl stitch. Skin glue was utilized on the incision sites. At the end of this procedure the sponge and needle counts were correct. DISPOSITION: Stable to the recovery room
[2024-06-03] MEDS: HYDROmorphone 0.5 MG/0.5 ML SYRINGE IVP PRN (13:20)
[2024-06-03 14:12] VITALS: RESP 16
[2024-06-03 15:21] VITALS: BP 93/60; PULSE 98
[2024-06-03] MEDS ORDERED: IBUPROFEN 600 MG TAB PO SCH (16:15)
== END 2024-06-03 15:40 | disposition home or self-care (01) ==
LOC: OR 09:26
PROVIDERS: ATTEND Surgery
DX: K80.10 Calculus of gallbladder with chronic cholecystitis without obstruction (principal); J45.909 Unspecified asthma, uncomplicated; G25.81 Restless legs syndrome; Z79.51 Long term (current) use of inhaled steroids; Z87.442 Personal history of urinary calculi; Z79.899 Other long term (current) drug therapy
CPT/HCPCS: 47562; 81025; 88304; 80053; 85027; J2250; J1644; J1100; J2710; J0690; J2405; J2003; J3010; J1885; J1171 ×2; J2704; J0665; J1596